=== PATIENT | male | born 1960 | race Caucasian/White ===

== ENCOUNTER → 2019-10-21 | Outpatient (CLI) | payer MEDICAID | END | disposition home or self-care (01) | LOC: PETCFH 09:11 | PROVIDERS: ATTEND Radiology Radiation Oncology | DX: C34.11 Malignant neoplasm of upper lobe, right bronchus or lung (principal) | CPT/HCPCS: 78815; A9552 ==

== ENCOUNTER 2019-10-25 08:46 | Outpatient (CLI) | payer MEDICAID | END 2019-10-25 23:59 | disposition home or self-care (01) | LOC: ROC 08:46 | PROVIDERS: ATTEND Radiology Radiation Oncology | DX: C34.11 Malignant neoplasm of upper lobe, right bronchus or lung (principal) | CPT/HCPCS: 99212; G0463 ==

== ENCOUNTER 2020-02-25 08:00 | Outpatient (CLI) | payer MEDICAID | END 2020-02-25 23:59 | disposition home or self-care (01) | LOC: ROC 08:00 | PROVIDERS: ATTEND Radiology Radiation Oncology | DX: Z85.118 Personal history of other malignant neoplasm of bronchus and lung (principal) | CPT/HCPCS: 99213; G0463 ==

== ENCOUNTER → 2020-05-24 | Outpatient (CLI) | payer MEDICAID | END | disposition home or self-care (01) | LOC: ROC 07:32 | PROVIDERS: ATTEND Radiology Radiation Oncology | DX: C34.11 Malignant neoplasm of upper lobe, right bronchus or lung (principal) | CPT/HCPCS: G0463-95 ==